=== PATIENT | female | born 1980 | race Caucasian/White ===

== ENCOUNTER 2017-09-27 03:54 | Emergency (ER) | payer OTHER ==
[2017-09-27 04:33] LABS: Bilirubin Negative (Negative); Blood, Urine Large (Negative); Clarity CLOUDY (Clear); Glucose, Urine (Dipstick) Negative (Negative); Leukocyte Small (Negative); Nitrite Negative (Negative); Protein, Urine (Dipstick) Negative (Neg-Trace); Specific Gravity, Urine 1.019 (1.002-1.036); pH, Urine 6.5 (5.0-9.0)
[2017-09-27 04:36] LABS: Bacteria/HPF 2+ HPF (None Seen); Hyaline Casts/LPF 0-3 HYALINE CAST LPF (0-3 Hyaline); Pathc Cast-AUWi Flag 0.67 (0-2.49); RBC/HPF GREATER THAN 50-TNTC HPF (0-3); Squamous Epithelial 21-50 HPF (0-3)
[2017-09-27 05:14] LABS: Pregnancy Test - Urine (BHCG) Negative (Negative); Pregu Control Background? CLEAR/WHITE (CLR/WHITE); Pregu Control Bar Appear? YES (CONTROL BAR); Specific Gravity 1.019 (1.002-1.036)
[2017-09-27 05:29] LABS: #Eosinphils 0.1 thou/uL (0.0-0.7); #Lymphocytes 1.8 thou/uL (1.20-3.40); #Monocytes 0.7 thou/uL (0.11-0.59); #Neutrophils 6.6 thou/uL (1.40-6.50); %Basophils 0.1 % (0.0-1.0); %Eosinophils 1.3 % (0.0-10.0); %Lymphocytes 19.2 % (21.0-51.0); %Neutrophils 71.4 % (42.0-75.0); Hemoglobin 12.1 g/dL (12.0-16.0); Mean Corpuscular Hemoglobin 26.5 pg (27.0-31.0); Mean Corpuscular Volume 82.9 fl (81.0-99.0); Mean Platelet Volume 6.4 fL (7.4-10.4); Platelet Count 391 thou/uL (130-400); RBC Distribution Width 13.5 % (11.5-14.5); Red Blood Cell (RBC) Count 4.57 mill/uL (4.20-5.40); White Blood Cell (WBC) Count 9.2 thou/uL (4.8-10.8)
[2017-09-27 05:42] LABS: ALT (SGPT) 19 U/L (8-55); AST (SGOT) 13 U/L (5-34); Albumin 4.1 g/dL (3.5-5.0); Alkaline Phosphatase 63 U/L (40-150); Anion Gap 13 mmol/L (10-20); BUN (Urea Nitrogen) 18 mg/dL (7.0-18.7); Bilirubin, Total 0.3 mg/dL (0.2-1.2); Calc. Creatinine Clearance 0 mL/min (70-130); Calcium 9.8 mg/dL (7.8-10.44); Carbon Dioxide 23 mmol/L (22-29); Chloride 105 mmol/L (98-107); Estimated GFR-MDRD 67; Globulin 3.3 g/dL (2.4-3.5); Glucose 108 mg/dL (70-105); Potassium 3.9 mmol/L (3.5-5.1); Protein, Total 7.4 g/dL (6.0-8.3); Sodium 137 mmol/L (136-145)
[2017-09-27] MEDS ORDERED: Ketorolac Tromethamine 30 MG/ML VIAL ONE (07:10)
--- NOTE | 2017-09-27 08:25 | CT ---
PRELIMINARY REPORT/[facility]/EMERGENCY AFTER HOURS PROCEDURE: EXAM: CT Abdomen and Pelvis Without Intravenous Contrast EXAM DATE/TIME: Exam ordered 09/27/2017 5:30 AM CLINICAL HISTORY: 36 years old, female; Pain; Abdominal pain; Flank; Right; Prior surgery; Patient HX: Er 3; 36 yo f. P t with right flank pain radiating to right groin, sudden onset tonight. States that she had n/v onset with pain and reports hematuria and dysuria for a few days. Pt denies pmh of stone but reports famil y HX of stone. TECHNIQUE: Axial computed tomography images of the abdomen and pelvis without intravenous contrast. Coronal reformatted images were created and reviewed. COMPARISON: No relevant prior studies available. FINDINGS: Lower thorax: There is subpleural atelectasis of the dependent portions of the lungs. ABDOMEN: Liver: There is a diffuse decrease in hepatic parenchymal density, consistent with fatty infiltration . Gallbladder and bile ducts: The gallbladder is normal. There is no evidence of biliary ductal dilatio n. No calcified stones. Pancreas: The pancreas is normal. No ductal dilation. Spleen: The spleen is normal. Adrenals: The adrenal glands are normal. Kidneys and ureters: There is mild RIGHT hydroureteronephrosis without identification of obstructing ureteral calculus, possibly due to limitations in slice thickness. There are bilateral nonobstructing renal pelvic calculi. Stomach and bowel: The stomach is normal. The duodenum is unremarkable. No obstruction. No mucosal th ickening. Appendix: A normal appendix is identified. PELVIS: Bladder: The bladder is normal. No stones. Reproductive: The uterus is normal. ABDOMEN and PELVIS: Intraperitoneal space: Normal. No free air. No significant fluid collection. Bones/joints: No acute fracture. No dislocation. Soft tissues: Normal. Vasculature: Normal. No abdominal aortic aneurysm. Lymph nodes: Normal. No enlarged lymph nodes. IMPRESSION: There is mild RIGHT hydroureteronephrosis without identification of obstructing RIGHT ureteral calcul us, possibly due to limitations in slice thickness. Thank you for allowing us to participate in the care of your patient. Dictated and Authenticated by: Don Araiza MD 09/27/2017 6:08 AM Central Time ([place] & [place]) FINAL REPORT EMERGENT AFTER HOURS CT ABDOMEN AND PELVIS PERFORMED WITHOUT CONTRAST ENHANCEMENT: HISTORY: Right flank pain. FINDINGS: ABDOMEN: The lung bases are clear. There are some fatty changes of the liver. The spleen is within normal limits in size, measuring bhumika roximately 11 cm in length. The pancreas and gallbladder regions are unremarkable. The right and left adrenal glands are normal in appearance. There are bilateral renal calculi. The largest calculus on the right is in the lower pole region and measures approximately 8 mm. An approx imately 5 to 6 mm calculus in the upper pole region of the left kidney is largest on the left side an d also the only left renal calculus. There is some minimal right-sided hydronephrosis and hydrourete r without a definite ureteral calculus seen. No significant periaortic or mesenteric adenopathy. PELVIS: No adenopathy, mass, or free fluid. IMPRESSION: 1. Bilateral renal calculi with right-sided hydronephrosis and hydroureter. The right ureter is dil ated at least to the pelvic brim. It becomes difficult to identify due to bowel beyond this level. No definite ureteral calculus is present. The ureteral calculus may have passed. 2. Fatty changes of the liver. This report is in agreement with the temporary report issued by [facility]. POS: [facility]
== END 2017-09-27 07:13 | disposition home or self-care (01) ==
LOC: ERS 03:54
DX: N13.2 Hydronephrosis with renal and ureteral calculous obstruction (principal); N39.0 Urinary tract infection, site not specified; M10.9 Gout, unspecified; E78.5 Hyperlipidemia, unspecified; Z79.899 Other long term (current) drug therapy
CPT/HCPCS: 36415; 74176; 80053; 81003; 81015; 81025; 85025; 96374; J1885

== ENCOUNTER 2017-10-06 04:41 | Emergency (ER) | payer OTHER ==
[2017-10-06 05:08] LABS: Bilirubin Negative (Negative); Blood, Urine Large (Negative); Clarity CLOUDY (Clear); Glucose, Urine (Dipstick) Negative (Negative); Leukocyte Small (Negative); Nitrite Negative (Negative); Protein, Urine (Dipstick) Negative (Neg-Trace); Specific Gravity, Urine 1.022 (1.002-1.036); Urobilinogen 0.2 mg/dL (0.2-1.0); pH, Urine 6.5 (5.0-9.0)
[2017-10-06 05:10] LABS: Bacteria/HPF 4+ HPF (None Seen); Hyaline Casts/LPF 0-3 HYALINE CAST LPF (0-3 Hyaline); Pathc Cast-AUWi Flag 0.67 (0-2.49); RBC/HPF 0-3 HPF (0-3); Squamous Epithelial 21-50 HPF (0-3)
[2017-10-06] MEDS ORDERED: Ketorolac Tromethamine 30 MG/ML VIAL ONE (05:10)
[2017-10-06 05:24] LABS: #Basophils 0.1 thou/uL (0.0-0.2); #Eosinphils 0.1 thou/uL (0.0-0.7); #Lymphocytes 2.5 thou/uL (1.20-3.40); #Monocytes 0.4 thou/uL (0.11-0.59); #Neutrophils 3.9 thou/uL (1.40-6.50); %Basophils 0.8 % (0.0-1.0); %Eosinophils 1.7 % (0.0-10.0); %Lymphocytes 35.6 % (21.0-51.0); %Monocytes 6.3 % (0.0-10.0); %Neutrophils 55.7 % (42.0-75.0); Hemoglobin 11.9 g/dL (12.0-16.0); Mean Corpuscular HGB CONC 32.5 g/dL (32.0-36.0); Mean Corpuscular Hemoglobin 26.9 pg (27.0-31.0); Mean Corpuscular Volume 82.8 fl (81.0-99.0); Mean Platelet Volume 6.5 fL (7.4-10.4); Platelet Count 371 thou/uL (130-400); RBC Distribution Width 13.3 % (11.5-14.5); Red Blood Cell (RBC) Count 4.42 mill/uL (4.20-5.40)
[2017-10-06 05:26] LABS: BHCG - Serum Negative (NEGATIVE); Pregs Control Background? CLEAR/WHITE (CLR/WHITE); Pregs Control Bar Appear? YES (CONTROL BAR)
[2017-10-06 05:34] LABS: ALT (SGPT) 18 U/L (8-55); AST (SGOT) 12 U/L (5-34); Albumin 3.7 g/dL (3.5-5.0); Alkaline Phosphatase 60 U/L (40-150); Anion Gap 15 mmol/L (10-20); BUN (Urea Nitrogen) 13 mg/dL (7.0-18.7); Bilirubin, Total 0.2 mg/dL (0.2-1.2); Calc. Creatinine Clearance 0 mL/min (70-130); Calcium 9.5 mg/dL (7.8-10.44); Carbon Dioxide 20 mmol/L (22-29); Chloride 107 mmol/L (98-107); Estimated GFR-MDRD 63; Globulin 3.2 g/dL (2.4-3.5); Glucose 98 mg/dL (70-105); Potassium 3.6 mmol/L (3.5-5.1); Protein, Total 6.9 g/dL (6.0-8.3); Sodium 138 mmol/L (136-145)
[2017-10-06] MEDS ORDERED: Ondansetron ODT 8 MG TAB ONE (06:00)
[2017-10-06] MEDS ORDERED: Morphine 4 MG/ML Carpuject ONE ×2 (07:17→08:58)
--- NOTE | 2017-10-06 09:33 | CT ---
PRELIMINARY REPORT/[facility]/EMERGENCY AFTER HOURS PROCEDURE: EXAM: CT Abdomen and Pelvis Without Intravenous Contrast CLINICAL HISTORY: 37 years old, female; Pain; Abdominal pain; Flank; Right; Patient HX: 37 yo f presents to ed C/O r fl ank pain onset 0200 this am. Also reports nausea, denies vomiting. Denies dysuria, denies urinary sym ptoms. Pt was seen on 09/27/17 for r flank pain and dx with kidney stone. Pt also had a uti then for wh ich she finished antibiotic course. Pt states she got better after visit then but today woke up with r flank pain. TECHNIQUE: Axial computed tomography images of the abdomen and pelvis without intravenous contrast. Coronal reformatted images were created and reviewed. COMPARISON: CT Stone Protocol 2017-09-27 05:30 FINDINGS: The lung bases are clear. Right kidney: Prominent right lower pole intrarenal calculus. Moderate right hydronephrosis and hydroureter, increased in the interval. There is a 4 mm distal right ureteral calculus, about 5 cm from the urinary bladder. This calculus li es at the level of the inferior right SI joint. This calculus was probably in the mid right kidney on the prior exam. There appear to be two additional distal right ureteral calculi, near the UVJ. These calculi measure 3 and 2 mm in diameter, and probably within in the lower pole adjacent to the large calculus on the p rior exam. Left kidney: Left upper pole intrarenal calculus, unchanged. No hydronephrosis or visible mass. No hydroureter or visible ureteral calculus. No definite gallbladder abnormality by CT. No biliary tree dilation. There is fatty infiltration of the liver. Unremarkable appearance of the spleen, adrenal glands, and pancreas. No free air, ascites, or bowel distention. No evidence for abdominal aortic aneurysm. No retroperitoneal adenopathy. CT pelvis: Urinary bladder appears essentially unremarkable by CT. The appendix is visualized and appears normal. There are no CT findings to strongly suggest diverticulitis. No abnormal mass or fluid collection in the pelvis. IMPRESSION: Three distal right ureteral calculi, see above details. Moderate right hydronephrosis and hydroureter. Bilateral intrarenal calculi. Normal appendix. No free air or bowel distention. Other findings discussed above. Thank you for allowing us to participate in the care of your patient. Dictated and Authenticated by: Don Corey MD 10/06/2017 6:03 AM Central Time ([place] & [place]) FINAL REPORT EMERGENCY AFTER HOURS STUDY CT ABDOMEN NONCONTRAST CT PELVIS NONCONTRAST: (urolithiasis protocol) DATE: 10/06/17. TIME: 5:19 a.m. HISTORY: A 37-year-old female with right flank pain. COMPARISON: 09/27/18. TECHNIQUE: IV injection of iodinated contrast media: none Oral contrast media: none FINDINGS: Other than for urolithiasis, the lack of IV and oral contrast limits the evaluation. There is a 3 x 4 x 4 mm round calculus at the right ureterovesical junction, just outside of the blad amol, new since the previous CT. Approximately 1 or 2 mm proximal to that, there is a smaller 2 x 2 x 2 mm calculus in the distal right ureter, another new finding. Several centimeters proximal to that, at approximately the coccosacral junction level, there is another new finding of a 2 x 2 x 4 mm calc ulus. The largest of these distal ureteral calculi, which is the most distal one, was previously in a right renal mid pole calyx. There is a new finding of moderate right hydronephrosis and mild to moderate right hydroureter. The 7 x 2 x 4 mm calculus remains at a right renal lower pole calyx. In the contralateral left kidney, a 3 x 5 x 5 mm calculus remains at an upper pole calyx. There is n o left-sided hydronephrosis. The hepatic attenuation is diffusely low consistent with fatty liver. Within the limitations of a noncontrast scan, no abnormality is identified involving the adrenals, pa ncreas, spleen, or appendix. No signs of acute colonic diverticulitis. No ascites or pneumoperitone um. No small bowel dilation. This report agrees with preliminary report by [facility]. IMPRESSION: 1. Positive for right-sided obstructive uropathy: 3 right ureteral calculi, 2 distal and 1 mid to di stal, causing moderate right hydronephrosis. 2. Bilateral nephrolithiasis, with a single moderate-sized calculus in each kidney. 3. Hepatic steatosis. JN R POS: [facility]
== END 2017-10-06 10:45 | disposition home or self-care (01) ==
LOC: ERS 04:41
DX: N13.2 Hydronephrosis with renal and ureteral calculous obstruction (principal); M10.9 Gout, unspecified; E78.5 Hyperlipidemia, unspecified; Z79.899 Other long term (current) drug therapy
CPT/HCPCS: 36415; 74176; 80053; 81003; 81015; 84703; 85025; 96361; 96372; 96374; 96376; J1885; J2270

== ENCOUNTER 2017-10-18 11:59 | Outpatient (CLI) | payer OTHER ==
[2017-10-18 12:53] LABS: Hemoglobin 12.2 g/dL (12.0-16.0); Mean Corpuscular HGB CONC 32.9 g/dL (32.0-36.0); Mean Corpuscular Hemoglobin 26.9 pg (27.0-31.0); Mean Corpuscular Volume 81.7 fl (81.0-99.0); Mean Platelet Volume 6.4 fL (7.4-10.4); Platelet Count 479 thou/uL (130-400); Red Blood Cell (RBC) Count 4.56 mill/uL (4.20-5.40); White Blood Cell (WBC) Count 9.3 thou/uL (4.8-10.8)
[2017-10-18 13:02] LABS: PTT 28.6 SEC (22.9-36.1); Prothrombin Time 13.5 SEC (12.0-14.7)
[2017-10-18 13:24] LABS: Anion Gap 13 mmol/L (10-20); BUN (Urea Nitrogen) 16 mg/dL (7.0-18.7); Calc. Creatinine Clearance 0 mL/min (70-130); Calcium 9.7 mg/dL (7.8-10.44); Carbon Dioxide 27 mmol/L (22-29); Chloride 103 mmol/L (98-107); Estimated GFR-MDRD 49; Glucose 94 mg/dL (70-105); Potassium 3.9 mmol/L (3.5-5.1); Sodium 139 mmol/L (136-145)
[2017-10-18 13:29] LABS: BHCG - Serum Negative (NEGATIVE); Pregs Control Background? CLEAR/WHITE (CLR/WHITE); Pregs Control Bar Appear? YES (CONTROL BAR)
== END 2017-10-18 12:00 | disposition home or self-care (01) ==
LOC: LABBT 11:59
PROVIDERS: ATTEND Urology
DX: Z01.812 Encounter for preprocedural laboratory examination (principal); N20.2 Calculus of kidney with calculus of ureter
CPT/HCPCS: 80048; 84703; 85027; 85610; 85730

== ENCOUNTER 2017-10-19 08:03 | Day surgery (SDC) | payer OTHER ==
[2017-10-18 12:18] VITALS: BMI 36.1
[2017-10-19] MEDS ORDERED: Levofloxacin 500 mg/D5W 100 ml Premix Bag ONE (10:08)
[2017-10-19] MEDS ORDERED: Midazolam HCl 2 mg/2 ml Vial ONE (10:08)
[2017-10-19] MEDS ORDERED: Fentanyl 100 MCG/2 ML VIAL ONE ×2 (13:47→15:31)
[2017-10-19] MEDS ORDERED: HYDROmorphone 0.5 MG/0.5 ML SYRINGE ONE (14:06)
--- NOTE | 2017-10-19 17:35 | OP ---
DATE OF PROCEDURE: 10/19/2017 SERVICE: Urology. SURGEON: Scott Morfin M.D. POSTOPERATIVE DIAGNOSIS: Right ureteral and renal stone. POSTOPERATIVE DIAGNOSIS: Right renal stone. PROCEDURE: Right ureteroscopy, laser lithotripsy, basket extraction of stone, and placement of a 6 x 24 double-J stent. INDICATIONS FOR PROCEDURE: Mrs. Hernandez is a 37-year-old white female who initially presented to [place] wit h right flank pain. Her CTA demonstrated 3 distal ureteral stones measuring 4 mm, 3 mm, and 2 mm res pectively as well as having a 7 mm right renal stone. I recommended ureteroscopy for removal of the distal stones as well as treatment of the large upper tract stone as that would have a low probabilit y of spontaneously passing, we discussed the risks and benefits and she has agreed to proceed forward . DESCRIPTION OF PROCEDURE: After identification of armband and verification of consent, the patient w as brought back to the operating room where she underwent general anesthesia with an LMA. She was th en placed in dorsal lithotomy position and prepped and draped in usual sterile fashion. After approp riate timeout, a lubricated 22 Albanian rigid cystoscope was introduced per urethra into the bladder. Attention was turned to the right ureteral orifice, which was cannulated with a 0.035 sensor wire to the level of the renal pelvis. The sensor wire was affixed to the drapes as a safety wire. A semi r igid ureteroscope was then passed alongside the sensor wire into the distal ureter. No stone was enc ountered indicating that likely the distal stones had passed already in the interim, ureteroscopy was performed, all the way the proximal ureter and no other stones were seen. An Amplatz Super Stiff wi re was then placed through the rigid ureteroscope to the level of the renal pelvis. The ureteroscope was then withdrawn and a 13 x 15 x 36 cm ureteral access sheath was advanced over the Super Stiff wi re to the level of the proximal ureter. The inner cannula and the Super Stiff wire were then removed leaving the outer sheath and the sensor wire in place as a safety wire. A flexible digital ureteros cope was then passed through the ureteral access sheath into the renal pelvis. Full pyeloscopy was p erformed and no stones were encountered in any of the calices except the lower pole gunjan, which demo nstrated a 7 mm stone. This appeared to be a hard dense calcium oxalate monohydrate type stone. A 2 00 micron laser fiber was used to fragment the stone into smaller pieces and a 1.9 Albanian 0 tip sam ol basket used to grab the pieces and bring them out for stone analysis. Upon completion of basking, there were no stone fragments left that were over 1 mm in size. Repeat pyeloscopy did not demonstra te any of the fragments. Pull back ureteroscopy was employed and there were no stones within the uret er. The sheath and the ureteroscope were then withdrawn and the cystoscope was backloaded over the s ensor wire back into the bladder. A 6 x 24 double-J stent was advanced over the sensor wire to the l evel of the renal pelvis. The sensor wire removed leaving a good curl in the renal pelvis and good c url in the bladder. The bladder was emptied and the cystoscope removed. The patient was awakened an d taken to PACU for recovery in stable condition. COMPLICATIONS: None. ESTIMATED BLOOD LOSS: Minimal. RETAINED TUBES AND DRAINS: A 6 x 24 double-J stent on the right. SPECIMENS: Stone for stone analysis. DISPOSITION: The patient will be discharged home and follow up with me in 1 week for cystoscopy and stent removal.
== END 2017-10-19 16:50 | disposition home or self-care (01) ==
LOC: CANPRESDC → SDC 08:03
PROVIDERS: ATTEND Urology
PROC: 0TF68ZZ Fragmentation in Right Ureter, Via Natural or Artificial Opening Endoscopic (ICD-10-PCS; principal; 2017-10-19)
PROC: 0T768DZ Dilation of Right Ureter with Intraluminal Device, Via Natural or Artificial Opening Endoscopic (ICD-10-PCS; principal; 2017-10-19)
DX: N20.0 Calculus of kidney (principal); D47.3 Essential (hemorrhagic) thrombocythemia; E78.00 Pure hypercholesterolemia, unspecified; Z79.899 Other long term (current) drug therapy; Z98.51 Tubal ligation status; Z98.891 History of uterine scar from previous surgery; Z98.890 Other specified postprocedural states
CPT/HCPCS: 76000; 82365; 88300; 96374; C1769; J0131; J1170; J1956; J2250; J3010

== ENCOUNTER 2017-11-21 14:18 | Outpatient (CLI) | payer OTHER | END 2017-11-21 14:19 | disposition home or self-care (01) | LOC: BICULT 14:18 | PROVIDERS: ATTEND Urology | DX: N20.0 Calculus of kidney (principal) | CPT/HCPCS: 76770 ==

== ENCOUNTER 2018-09-03 01:04 | Emergency (ER) | payer OTHER ==
[2018-09-03 01:35] LABS: Bilirubin Negative (Negative); Blood, Urine Large (Negative); Clarity TURBID (Clear); Glucose, Urine (Dipstick) Negative (Negative); Leukocyte Large (Negative); Nitrite Negative (Negative); Protein, Urine (Dipstick) 100 mg/dL (Neg-Trace); Specific Gravity, Urine 1.015 (1.002-1.036)
[2018-09-03 01:36] LABS: Bacteria/HPF 1+ HPF (None Seen); Pathc Cast-AUWi Flag 2.01 (0-2.49); Squamous Epithelial 0-3 HPF (0-3)
[2018-09-03 01:40] LABS: Yeast-AUWi Flag 154.2 (0-25.0)
[2018-09-03 01:44] LABS: RBC/HPF GREATER THAN 50-TNTC HPF (0-3)
[2018-09-03 01:45] LABS: Hyaline Casts/LPF NONE SEEN LPF (0-3 Hyaline); Yeast-All Forms None Seen HPF (None Seen)
[2018-09-03 01:47] LABS: #Basophils 0.1 thou/uL (0.0-0.2); #Eosinphils 0.1 thou/uL (0.0-0.7); #Lymphocytes 2.1 thou/uL (1.20-3.40); #Monocytes 0.7 thou/uL (0.11-0.59); #Neutrophils 8.4 thou/uL (1.40-6.50); %Basophils 0.6 % (0.0-1.0); %Eosinophils 0.8 % (0.0-10.0); %Lymphocytes 18.3 % (21.0-51.0); %Monocytes 6.3 % (0.0-10.0); %Neutrophils 74.1 % (42.0-75.0); Hemoglobin 12.9 g/dL (12.0-16.0); Mean Corpuscular HGB CONC 33.1 g/dL (32.0-36.0); Mean Corpuscular Hemoglobin 27.3 pg (27.0-31.0); Mean Corpuscular Volume 82.4 fL (78.0-98.0); Mean Platelet Volume 6.7 fL (7.4-10.4); Platelet Count 415 thou/uL (130-400); RBC Distribution Width 13.3 % (11.5-14.5); Red Blood Cell (RBC) Count 4.73 mill/uL (4.20-5.40); White Blood Cell (WBC) Count 11.4 thou/uL (4.8-10.8)
[2018-09-03 02:08] LABS: ALT (SGPT) 27 U/L (8-55); AST (SGOT) 18 U/L (5-34); Alkaline Phosphatase 68 U/L (40-150); Anion Gap 11 mmol/L (10-20); BUN (Urea Nitrogen) 15 mg/dL (7.0-18.7); Bilirubin, Total 0.2 mg/dL (0.2-1.2); Calc. Creatinine Clearance 0 mL/min (70-130); Calcium 9.8 mg/dL (7.8-10.44); Carbon Dioxide 27 mmol/L (22-29); Chloride 105 mmol/L (98-107); Estimated GFR-MDRD 53; Globulin 3.3 g/dL (2.4-3.5); Glucose 111 mg/dL (70-105); Protein, Total 7.3 g/dL (6.0-8.3); Sodium 139 mmol/L (136-145)
[2018-09-03] MEDS ORDERED: cefTRIAXone\\ROCEPHIN 1 GM VIAL ONE (02:38)
[2018-09-03] MEDS ORDERED: Lidocaine 1% (PF) 30 ML VIAL ONE (02:42)
--- NOTE | 2018-09-03 07:39 | CT ---
PRELIMINARY REPORT/[facility]/EMERGENCY AFTER HOURS PROCEDURE: EXAM: CT Abdomen and Pelvis Without Contrast EXAM DATE/TIME: 09/03/2018 1:35 AM CLINICAL HISTORY: 37 years old, female; Pain and signs and symptoms; Other: Hematuria; Abdominal pain; Generalized; Pat ient HX: F37 presents to ed for urinary SX. PT reports urinating blood since 6:30 pm monday night. PT reports urinary frequency and pressure. PT denies fevers, abdominal pain, back pain. Hx-hx of kidney stones but with different SX, denies allergies to medicines, denies smoking or alcohol/drug abuse. TECHNIQUE: Axial computed tomography images of the abdomen and pelvis without contrast. Coronal reformatted imag es were created and reviewed. COMPARISON: No relevant prior studies available. FINDINGS: Lower thorax: The lung bases are clear. ABDOMEN: Liver: There is fatty infiltration of the liver. Gallbladder and bile ducts: No definite gallbladder abnormality by CT. No biliary tree dilation. Pancreas: Unremarkable. Spleen: Unremarkable. Adrenals: Unremarkable. Kidneys and ureters: 2 left intrarenal calculi. No hydronephrosis of either kidney. No visible ureteral calculus. No perinephric fluid. Stomach and bowel: There are no CT findings to strongly suggest diverticulitis. Appendix: The appendix is visualized and appears normal. PELVIS: Bladder: Possible very mild diffuse urinary bladder wall thickening. While nonspecific, this could indicate evidence for cystitis. Please correlate clinically. Reproductive: Unremarkable as visualized. ABDOMEN and PELVIS: Intraperitoneal space: No free air, ascites, or bowel distention. No abnormal mass or fluid collection in the pelvis. Bones/joints: No significant acute finding. Soft tissues: No significant acute finding. Vasculature: No evidence for abdominal aortic aneurysm. Lymph nodes: No retroperitoneal adenopathy. IMPRESSION: 1. No hydronephrosis of either kidney. No visible ureteral calculus. No perinephric fluid. 2. Possible mild urinary bladder wall thickening, see above. 3. No free air or bowel distention. 4. Normal appendix. 5. Other findings discussed above. Thank you for allowing us to participate in the care of your patient. Dictated and Authenticated by: Don Corey MD 09/03/2018 2:04 AM Central Time ([place] & [place]) FINAL REPORT CT ABDOMEN AND PELVIS WITHOUT CONTRAST: Date: 09/03/18 HISTORY: Hematuria. Urinary symptoms. COMPARISON: CT abdomen and pelvis stone protocol dated 10/06/17. FINDINGS/IMPRESSION: Findings and impression are concordant with the preliminary report by [facility]. There is an unchanged 4.0 mm calculus superior pole right kidney. There is a 2-3 mm calculus intrapolar left kidney. No right- sided ureteral calculus appreciated. No hydroureteronephrosis. No secondary evidence of recently pass ed stone. POS: [facility]
== END 2018-09-03 03:16 | disposition home or self-care (01) ==
LOC: ERS 01:04
DX: N30.91 Cystitis, unspecified with hematuria (principal); M10.9 Gout, unspecified; E78.5 Hyperlipidemia, unspecified; Z79.899 Other long term (current) drug therapy
CPT/HCPCS: 36415; 74176; 80053; 81003; 81015; 85025; 96372; J0696; J2001

== ENCOUNTER 2018-12-10 13:46 | Outpatient (CLI) | payer OTHER ==
--- NOTE | 2018-12-10 15:17 | RAD ---
BILATERAL HIPS: AP view of the pelvis obtained with neutral and frogleg positions for a total of two views. Indications: History of hip dislocation. FINDINGS: Femoral head contours appear normal bilaterally. There is slight widening of the left hip joint. There is articular irregularity along the superior ac etabulum on the left. No fracture acute abnormality. Acetabulum otherwise appear normally maintained. IMPRESSION: Slight widening of the left hip joint. Articular irregularity along the superior articular surface of the left acetabulum. POS: [facility]
== END 2018-12-10 13:47 | disposition home or self-care (01) ==
LOC: RAD-FRANK 13:46
PROVIDERS: ATTEND Nurse Practitioner Family
DX: Z87.39 Personal history of other diseases of the musculoskeletal system and connective tissue (principal); M25.852 Other specified joint disorders, left hip
CPT/HCPCS: 73521

== ENCOUNTER 2018-12-19 07:41 | Outpatient (CLI) | payer OTHER ==
--- NOTE | 2019-01-02 15:54 | MMO ---
Bilateral MAMMO Bilat Screen [facility]. CLINICAL HISTORY: Patient is 38 years old and is seen for screening. The patient has the following family history of breast cancer: cousin female. The patient has no personal history of cancer. The patient has a history of bilateral Breast reduction in 2008 - benign. VIEWS: The views performed were: bilateral craniocaudal with tomosynthesis and bilateral mediolateral oblique with tomosynthesis. MAMMOGRAM FINDINGS: There are scattered fibroglandular densities. There are benign appearing calcifications seen in both breasts. There are no suspicious masses, suspicious calcifications, or new areas of architectural distortion. IMPRESSION: THERE IS NO MAMMOGRAPHIC EVIDENCE OF MALIGNANCY. A ROUTINE FOLLOW-UP MAMMOGRAM IN 1 YEAR IS RECOMMENDED. THE RESULTS OF THIS EXAM WERE SENT TO THE PATIENT. ACR BI-RADS Category 2 - Benign finding MAMMOGRAPHY NOTE: 1. A negative mammogram report should not delay a biopsy if a dominant of clinically suspicious mass is present. 2. Approximately 10% to 15% of breast cancers are not detected by mammography. 3. Adenosis and dense breasts may obscure an underlying neoplasm.
== END 2018-12-19 07:42 | disposition home or self-care (01) ==
LOC: BICMAMMO 07:41
PROVIDERS: ATTEND Nurse Practitioner Family
DX: Z12.31 Encounter for screening mammogram for malignant neoplasm of breast (principal); Z80.3 Family history of malignant neoplasm of breast
CPT/HCPCS: 77063; 77067

== ENCOUNTER 2020-06-15 18:57 | Emergency (ER) | payer OTHER ==
[~2020-06-15 18:57] MED LIST: Iopamidol 370 76% 100 ML VIAL ONE
[2020-06-15 19:31] LABS: #Eosinphils 0.1 thou/uL (0.0-0.7); #Lymphocytes 2.3 thou/uL (1.20-3.40); #Monocytes 0.5 thou/uL (0.11-0.59); #Neutrophils 5.3 thou/uL (1.40-6.50); %Basophils 0.3 % (0.0-1.0); %Eosinophils 1.4 % (0.0-10.0); %Lymphocytes 28.2 % (21.0-51.0); %Monocytes 5.7 % (0.0-10.0); %Neutrophils 64.4 % (42.0-75.0); Hemoglobin 12.2 g/dL (12.0-16.0); Mean Corpuscular HGB CONC 32.7 g/dL (32.0-36.0); Mean Corpuscular Hemoglobin 26.1 pg (27.0-31.0); Mean Corpuscular Volume 79.9 fL (78.0-98.0); Mean Platelet Volume 6.9 fL (7.4-10.4); Platelet Count 396 thou/uL (130-400); RBC Distribution Width 14.5 % (11.5-14.5); Red Blood Cell (RBC) Count 4.68 mill/uL (4.20-5.40); White Blood Cell (WBC) Count 8.2 thou/uL (4.8-10.8)
[2020-06-15 19:54] LABS: ALT (SGPT) 15 U/L (8-55); AST (SGOT) 11 U/L (5-34); Albumin 4.1 g/dL (3.5-5.0); Alkaline Phosphatase 67 U/L (40-110); Anion Gap 15 mmol/L (10-20); BUN (Urea Nitrogen) 10 mg/dL (7.0-18.7); Bilirubin, Total 0.2 mg/dL (0.2-1.2); Calc. Creatinine Clearance 0 mL/min (70-130); Calcium 9.1 mg/dL (7.8-10.44); Carbon Dioxide 22 mmol/L (22-29); Chloride 104 mmol/L (98-107); Estimated GFR-MDRD 57; Glucose 80 mg/dL (70-105); Protein, Total 7.1 g/dL (6.0-8.3); Sodium 137 mmol/L (136-145)
[2020-06-15 20:24] LABS: Bilirubin Negative (Negative); Blood, Urine 3+ (Negative); Clarity Turbid (Clear); Glucose, Urine (Dipstick) Normal (Negative); Ketone, Urine Negative (Negative); Leukocyte 250 Leu/uL (Negative); Nitrite Negative (Negative); Protein, Urine (Dipstick) 10 mg/dL (Neg-Trace); RBC/HPF Greater than 50 HPF (0-3); Specific Gravity, Urine 1.022 (1.002-1.036); Urobilinogen Normal mg/dL (Less than 2)
[2020-06-15 20:26] LABS: Pregnancy Test - Urine (BHCG) Negative (Negative); Pregu Control Background? CLEAR/WHITE (CLR/WHITE); Pregu Control Bar Appear? YES (CONTROL BAR); Specific Gravity 1.022 (1.002-1.036)
[2020-06-15 20:30] LABS: Bacteria/HPF 2+ HPF (None Seen)
--- NOTE | 2020-06-15 20:30 | CT ---
CT CERVICAL SPINE: Date: 06-15-2020 PROVIDED CLINICAL HISTORY: Trauma. FINDINGS: There is no evidence for a fracture or traumatic subluxation. No prevertebral soft tissue swelling ap parent. The visualized lung apices appear clear. IMPRESSION: No evidence for fracture or traumatic subluxation. POS: [facility]
--- NOTE | 2020-06-15 20:59 | CT ---
CT CHEST, ABDOMEN, AND PELVIS WITH IV CONTRAST: Date: 06-15-2020 PROVIDED CLINICAL HISTORY: Trauma FINDINGS: The heart, pericardium, and great vessels demonstrate no evidence for traumatic abnormality. The lung s are free of significant opacity. There is no pleural fluid or pneumothorax apparent. The solid abdominal organs demonstrate no evidence for traumatic abnormality. There is a 7 mm nonobst ructing calculus involving the superior pole of the left kidney. There is no bowel dilatation, inflam matory fat stranding, free fluid, or free air apparent. The osseous structures demonstrate no evidence for an acute abnormality. The sagittal and coronal tho racic and lumbar spine reconstructions demonstrate normal spinal alignment with maintenance of verteb ral body heights. IMPRESSION: 1. No evidence for traumatic abnormality involving the chest, abdomen, or pelvis. 2. 7 mm nonobstructing superior pole left renal calculus. POS: [facility]
== END 2020-06-15 20:55 | disposition home or self-care (01) ==
LOC: ERS 18:57
DX: M54.5 Low back pain (principal); M54.6 Pain in thoracic spine; M54.2 Cervicalgia; N20.0 Calculus of kidney; M10.9 Gout, unspecified; E78.5 Hyperlipidemia, unspecified; E78.00 Pure hypercholesterolemia, unspecified; V89.2XXA Person injured in unspecified motor-vehicle accident, traffic, initial encounter
CPT/HCPCS: 36415; 71260; 72125; 74177; 80053; 81003; 81015; 81025; 85025; Q9967

== ENCOUNTER 2020-10-14 11:16 | Emergency (ER) | payer OTHER, SELFPAY ==
[2020-10-14] MEDS ORDERED: Ketorolac Tromethamine 30 MG/ML VIAL ONE (11:37)
[2020-10-14 11:44] LABS: #Eosinphils 0.1 thou/uL (0.0-0.7); #Lymphocytes 2.1 thou/uL (1.20-3.40); #Monocytes 0.6 thou/uL (0.11-0.59); #Neutrophils 5.5 thou/uL (1.40-6.50); %Basophils 0.4 % (0.0-1.0); %Lymphocytes 25.1 % (21.0-51.0); %Monocytes 7.2 % (0.0-10.0); %Neutrophils 66.4 % (42.0-75.0); Hemoglobin 12.2 g/dL (12.0-16.0); Mean Corpuscular HGB CONC 31.6 g/dL (32.0-36.0); Mean Corpuscular Hemoglobin 25.5 pg (27.0-31.0); Mean Corpuscular Volume 80.7 fL (78.0-98.0); Mean Platelet Volume 6.8 fL (7.4-10.4); Platelet Count 407 thou/uL (130-400); RBC Distribution Width 14.7 % (11.5-14.5); White Blood Cell (WBC) Count 8.3 thou/uL (4.8-10.8)
[2020-10-14 12:11] LABS: ALT (SGPT) 13 U/L (8-55); AST (SGOT) 11 U/L (5-34); Albumin 4.3 g/dL (3.5-5.0); Alkaline Phosphatase 63 U/L (40-110); Anion Gap 13 mmol/L (10-20); BUN (Urea Nitrogen) 15 mg/dL (7.0-18.7); Bilirubin, Total 0.3 mg/dL (0.2-1.2); Calc. Creatinine Clearance 0 mL/min (70-130); Calcium 9.6 mg/dL (7.8-10.44); Carbon Dioxide 26 mmol/L (22-29); Chloride 104 mmol/L (98-107); Globulin 3.6 g/dL (2.4-3.5); Glucose 82 mg/dL (70-105); Potassium 4.4 mmol/L (3.5-5.1); Protein, Total 7.9 g/dL (6.0-8.3); Sodium 139 mmol/L (136-145)
--- NOTE | 2020-10-14 12:12 | CT ---
EXAM: CT abdomen and pelvis without contrast PROVIDED CLINICAL HISTORY: Left flank pain COMPARISON: 06/15/2020 FINDINGS: The visualized lung bases are free of significant opacity. There is a 7 mm mid left ureteral calculus with mild left hydronephrosis and hydroureter. No addition al urinary tract calculi are evident. The solid abdominal organs are suboptimally evaluated in the absence of IV contrast material but demo nstrate an otherwise unremarkable unenhanced CT appearance. There is no bowel dilatation, inflammatory fat stranding, free fluid or free air apparent. The osseous structures demonstrate no concerning lytic or blastic lesions. IMPRESSION: 7 mm obstructing left ureteral calculus.
[2020-10-14 13:39] LABS: Bacteria/HPF None Seen HPF (None Seen); Bilirubin Negative (Negative); Blood, Urine 3+ (Negative); Clarity Turbid (Clear); Glucose, Urine (Dipstick) Normal (Negative); Ketone, Urine Negative (Negative); Leukocyte 25 Leu/uL (Negative); Nitrite Negative (Negative); Protein, Urine (Dipstick) 10 mg/dL (Neg-Trace); RBC/HPF Greater than 50 HPF (0-3); Specific Gravity, Urine 1.019 (1.002-1.036); Urobilinogen Normal mg/dL (Less than 2); pH, Urine 5.5 (5.0-9.0)
== END 2020-10-14 14:40 | disposition home or self-care (01) ==
LOC: ERS 11:16
DX: N13.2 Hydronephrosis with renal and ureteral calculous obstruction (principal); M10.9 Gout, unspecified; E78.5 Hyperlipidemia, unspecified; E78.00 Pure hypercholesterolemia, unspecified; F17.200 Nicotine dependence, unspecified, uncomplicated
CPT/HCPCS: 74176; 80053; 81003; 81015; 85025; 87086; 96374; J1885

== ENCOUNTER 2020-12-22 08:34 | Emergency (ER) | payer OTHER ==
[2020-12-22 08:59] LABS: Bacteria/HPF 3+ HPF (None Seen); Bilirubin Negative (Negative); Blood, Urine Trace (Negative); Clarity Turbid (Clear); Glucose, Urine (Dipstick) Normal (Negative); Ketone, Urine Negative (Negative); Leukocyte 500 Leu/uL (Negative); Nitrite Negative (Negative); Protein, Urine (Dipstick) 20 mg/dL (Neg-Trace); Specific Gravity, Urine 1.019 (1.002-1.036); Urobilinogen Normal mg/dL (Less than 2); WBC/HPF Greater than 50 HPF (0-3)
[2020-12-22 09:08] LABS: Pregnancy Test - Urine (BHCG) Negative (Negative); Pregu Control Background? CLEAR/WHITE (CLR/WHITE); Pregu Control Bar Appear? YES (CONTROL BAR); Specific Gravity 1.019 (1.002-1.036)
[2020-12-22] MEDS ORDERED: Ketorolac Tromethamine 30 MG/ML VIAL ONE (09:25)
== END 2020-12-22 09:45 | disposition home or self-care (01) ==
LOC: ERS 08:34
DX: N39.0 Urinary tract infection, site not specified (principal); M10.9 Gout, unspecified; E78.5 Hyperlipidemia, unspecified; E78.00 Pure hypercholesterolemia, unspecified; F17.200 Nicotine dependence, unspecified, uncomplicated
CPT/HCPCS: 81003; 81015; 81025; 87077; 87086; 87186; 96372; 99283; J1885

== ENCOUNTER 2021-06-25 09:49 | Emergency (ER) | payer OTHER ==
[2021-06-25] MEDS ORDERED: Ondansetron PF 4 MG/2 ML Vial ONE (10:36)
[2021-06-25 10:42] LABS: #Eosinphils 0.1 thou/uL (0.0-0.7); #Lymphocytes 1.4 thou/uL (1.20-3.40); #Monocytes 0.7 thou/uL (0.11-0.59); #Neutrophils 4.3 thou/uL (1.40-6.50); %Basophils 0.6 % (0.0-1.0); %Eosinophils 0.9 % (0.0-10.0); %Monocytes 10.2 % (0.0-10.0); %Neutrophils 66.2 % (42.0-75.0); Hemoglobin 13.3 g/dL (12.0-16.0); Mean Corpuscular HGB CONC 31.5 g/dL (32.0-36.0); Mean Corpuscular Hemoglobin 24.3 pg (27.0-31.0); Mean Corpuscular Volume 77.2 fL (78.0-98.0); Mean Platelet Volume 7.1 fL (7.4-10.4); Platelet Count 397 thou/uL (130-400); RBC Distribution Width 14.5 % (11.5-14.5); Red Blood Cell (RBC) Count 5.48 mill/uL (4.20-5.40); White Blood Cell (WBC) Count 6.5 thou/uL (4.8-10.8)
[2021-06-25 10:47] LABS: BHCG - Serum Negative (NEGATIVE); Pregs Control Background? CLEAR/WHITE (CLR/WHITE); Pregs Control Bar Appear? YES (CONTROL BAR)
[2021-06-25 11:05] LABS: ALT (SGPT) 9 U/L (8-55); AST (SGOT) 10 U/L (5-34); Albumin 3.9 g/dL (3.5-5.0); Alkaline Phosphatase 66 U/L (40-110); Anion Gap 9 mmol/L (10-20); BUN (Urea Nitrogen) 11 mg/dL (7.0-18.7); Bilirubin, Total 0.7 mg/dL (0.2-1.2); Calc. Creatinine Clearance 0 mL/min (70-130); Calcium 9.4 mg/dL (7.8-10.44); Carbon Dioxide 25 mmol/L (22-29); Chloride 105 mmol/L (98-107); Globulin 3.6 g/dL (2.4-3.5); Glucose 85 mg/dL (70-105); Lipase 18 U/L (8-78); Protein, Total 7.5 g/dL (6.0-8.3); Sodium 135 mmol/L (136-145)
== END 2021-06-25 12:07 | disposition home or self-care (01) ==
LOC: ERS 09:49
DX: E86.0 Dehydration (principal); R11.2 Nausea with vomiting, unspecified; R19.7 Diarrhea, unspecified; E78.5 Hyperlipidemia, unspecified; E78.00 Pure hypercholesterolemia, unspecified; F17.200 Nicotine dependence, unspecified, uncomplicated; M10.9 Gout, unspecified
CPT/HCPCS: 80053; 83690; 84703; 85025; 96374; J2405

== ENCOUNTER 2021-08-05 11:01 | Emergency (ER) | payer OTHER ==
[2021-08-05 11:27] LABS: Bilirubin Negative (Negative); Blood, Urine Trace (Negative); Glucose, Urine (Dipstick) Negative (Negative); Ketone, Urine Negative (Negative); Leukocyte Negative (Negative); Nitrite Negative (Negative); Protein, Urine (Dipstick) Negative (Neg-Trace); Specific Gravity, Urine 1.025 (1.005-1.030); Urobilinogen 0.2 mg/dL (Less than 2); pH, Urine 5.5 (5.0-9.0)
[2021-08-05 11:28] LABS: Clarity Clear (Clear)
[2021-08-05 11:31] LABS: Bacteria/HPF None Seen HPF (None Seen); RBC/HPF 0-3 HPF (0-3); Squamous Epithelial 0-3 HPF (0-3); WBC/HPF 0-3 HPF (0-3)
[2021-08-05] MEDS ORDERED: Ketorolac Tromethamine 30 MG/ML VIAL ONE (11:37)
== END 2021-08-05 11:55 | disposition home or self-care (01) ==
LOC: ERS 11:01
DX: S39.012A Strain of muscle, fascia and tendon of lower back, initial encounter (principal); E78.00 Pure hypercholesterolemia, unspecified; E78.5 Hyperlipidemia, unspecified; F17.200 Nicotine dependence, unspecified, uncomplicated; X50.0XXA Overexertion from strenuous movement or load, initial encounter; Y92.89 Other specified places as the place of occurrence of the external cause; Y99.0 Civilian activity done for income or pay
CPT/HCPCS: 81003; 96372; 99283; J1885

== ENCOUNTER 2021-09-11 18:33 | Emergency (ER) | payer OTHER ==
[2021-09-11] MEDS ORDERED: Ketorolac Tromethamine 30 MG/ML VIAL ONE (19:18)
== END 2021-09-11 19:15 | disposition home or self-care (01) ==
LOC: ERS 18:33
DX: M79.644 Pain in right finger(s) (principal)
CPT/HCPCS: 96372; J1885